=== PATIENT | female | born 2000 | race Caucasian/White ===

== ENCOUNTER 2023-12-17 21:20 | Observation (INO) | payer MEDICARE, SELFPAY ==
[2023-12-17 20:00] VITALS: BMI 31.4
[2023-12-17 20:03] VITALS: BP 143/89
[2023-12-17 20:39] VITALS: BP 115/78
[2023-12-17 21:05] LABS: % Basophils 0.5 % (0-2); % Eosinophils 1.2 % (0-6); % Immature Granulocytes 4.4 % (0-0.5); % Lymphocytes 13.9 % (20.5-51.1); Absolute Basophils 0.1 10^3/uL (0-0.2); Absolute Eosinophils 0.1 10^3/uL (0-0.7); Absolute Immature Granulocytes 0.5 10^3/uL (0-0.05); Absolute Lymphocytes 1.4 10^3/uL (1.2-3.4); Absolute Monocytes 0.7 10^3/uL (0.1-0.6); Absolute Neutrophils 7.4 10^3/uL (1.4-6.5); Hematocrit 33.7 % (37.0-47.0); Hemoglobin 11.6 g/dL (12.0-16.0); Mean Corp Hgb Conc. 34.4 g/dL (33.0-37.0); Mean Corpuscular Hgb 30.2 pg (27.0-31.0); Mean Corpuscular Volume 87.8 fL (81.0-99.0); Mean Platelet Volume 9.1 fL (7.4-10.4); Nucleated Red Blood Cells % 0 %; Platelet Count 207 10^3/uL (130-400); Red Blood Cell Count 3.84 10^6/uL (4.20-5.40); Red Cell Dist. Width 18.6 % (11.5-14.5); White Blood Cell Count 10.1 10^3/uL (4.8-10.8)
--- NOTE | 2023-12-17 21:08 | ED.GENMED ---
History of Present Illness
General
Chief Complaint: Headache
Source: patient
Exam Limitations: none
Time Seen by Provider: 12/17/23 20:21
Travel History
Have you had any contact with someone who has COVID-19?: No
Do you have any symptoms of coronavirus? Fever > 100 degrees, chills, cough, shortness of breath, sore throat, loss of taste or smell, muscle aches, or headache?: No
History of Present Illness
History of Present Illness:
23 y/o F
38 weeks gestation
uncomplicated so far
followed by [facility]
has had 2 weeks of headache, diffuse headache, waxes and wanes but only goes away whne she sleeps
she went to [facility] L&D 2 weeks ago and had labs checked, was given ivf and d/c home but still had the headache
has been taking tylenol 3 times a day and having occasional episodes of nausea/vomiting spontenously
she also has had 1 week of URI sxs, right ear pressure, nasal congestion, dry cough
neg covid test a few days ago
ewn tback to [facility] and had another evlaution
bps normal
labs normla
given reglan/benadryl and fluids and still had the headache
pt is feeling discouraged, that she still has the headache and feels like the staff are blowing her off
she had outpatient appt yesterday, was again feeling unheard
and today has left several messages and at this point is very frustrated and wants another opinon
feeling baby move
no leakage of fluid
no RUQ pain
no edema
bp out front was elevated, this is the highest it has been.
Review of Systems
Review of Systems
Allergies reviewed?: Yes
All Other Systems: Not applicable
Phy Exam
Physical Exam
Physical Exam:
GENERAL: Alert , in no apparent distress
EYE: pupils equal and reactive
NECK: Supple
ENT: R tm with effusion, slightly pink, no perofration
L tm normal, pharynx erythematous but no tonsillar hypertrophy or exudates
CARDIAC: Regular rate and rhythm, no edema
LUNGS: Clear breath sounds bilaterally, no acute respiratory distress, no wheezes/rales/rhonchi, occ cough
ABDOMEN: Soft, GRAVIDwithout focal tenderness, no r/g, no cvat, normal bowel sounds
NEUROLOGICAL: Alert and oriented, no focal neuro deficits, cn intact
SKIN: Warm and dry, skin intact.
acne cheeks
MUSCULOSKELETAL: No edema, well perfused.
PSYCH: Normal and appropriate interaction.
Course
Orders/Labs/Results
Orders:
Orders
12/17/23 20:56
Complete Blood Count/With Diff Urgent
Comprehensive Metabolic Panel Urgent
Protein/Creat Ratio (Random) Urgent
Date Specimen was Collected: 12/17/23
Time Specimen was Collected: 20:55
Urinalysis Reflex To Culture Urgent
Date Specimen was Collected: 12/17/23
Time Specimen was Collected: 20:55
Vital Signs
Initial and Last Documented VS:
Initial Vital Signs
Temp Pulse Resp BP Pulse Ox
98.2 F 90 14 143/89 100
12/17/23 20:03 12/17/23 20:03 12/17/23 20:03 12/17/23 20:03 12/17/23 20:03
Last Documented Vital Signs
Temp Pulse Resp BP Pulse Ox
98.2 F 90 14 115/78 97
12/17/23 20:03 12/17/23 20:03 12/17/23 20:03 12/17/23 20:39 12/17/23 20:45
MDM/Problems Addressed
Differential Diagnosis Includes:
preeclampsia, sinus headache, sinusitis, tension headache, dehydration
MDM/Problems Addressed:
23 y/o F 38 weeks preg
followed at outside hostpial
headache x 2 weeks, no releif with tylenol
w/u x 2 for preeclampsia neg, stil lhas headache
feeling frustrated
initial bp 140/89
then down to 115/73
no edema
nontender gravid abdomen
R ear serous itits/possibly early infection
no AYLA
no necks stiffness
d/w OB attneding, accepts her upstairs
already in process of labs being drawn here, will be followed up there
*Critical Care Note
Total Time (30-74mins, 75-104mins- exclusive of procedures): Not Applicable
ED Attending Note
-
Portions of this chart may have been created with voice recognition software.� Occasional wrong word or��sound alike� substitutions may have occurred due to the inherent limitations of voice recognition software.
Discharge Plan
Departure
Patient Disposition: Home (Routine Discharge)
Date of Disposition: 12/17/23
Time of Disposition: 20:53
Patient with high blood pressure during this ER visit?: Yes
Condition: Fair
Covid-19: Not Applicable
Discharge Problem:
Elevated blood pressure reading, Headache in , Acute ear infection
Instructions: Headache, Adult (DC), Ear Infections in Adults (DC)
Prescriptions:
No Action
Pre-[employer] Multivitamins/Minerals
1 tab PO DAILY
Activity Restrictions/Additional Instructions:
YOU NEED TO GO TO LABOR AND DELIVERY FOR EVALUATION FOR PREECLAMSPIA
YOU CAN TRY BENADRYL AT NIGHT NEEDED FOR YOUR EAR PRESSURE
USE FLONASE NASAL SPRAY
IF YOUR EAR IS STILL BOTHERING YOU, YOU MAY NEED AN ANTIBIOTIC
RETURN FOR ANY CONCERNS.
Interventions
Interventions:
*Risk Screen - Suicide Last Done: 12/17/23 20:09
*General Assessment Last Done: 12/17/23 20:09
*Neglect/Abuse Screening Last Done: 12/17/23 20:09
ED- Fall Risk Assessment Last Done: 12/17/23 20:09
*ED COVID-19 Vaccine History Last Done: 12/17/23 20:09
Discharge Date and Time
Print Language: ALBANIAN
[2023-12-17 21:12] LABS: Urine Albumin Negative (Neg - Trace); Urine Bilirubin Negative (Negative); Urine Character Clear (Clear); Urine Color Yellow; Urine Glucose Negative (Negative); Urine Ketone Negative (Negative); Urine Leukocyte Negative (Negative); Urine Nitrite Negative (Negative); Urine Occult Blood Negative (Negative); Urine Specific Gravity 1.015 (<1.030); Urine Urobilinogen 1+ (Neg - 1+)
[2023-12-17 21:21] LABS: ALT (SGPT) 22 U/L (0-35); AST (SGOT) 47 U/L (14-36); Albumin 3.5 g/dl (3.5-5.0); Alkaline Phosphatase 231 U/L (38-126); Blood Urea Nitrogen 3 mg/dl (7-17); Calcium 9.4 mg/dl (8.4-10.2); Carbon Dioxide 19 mmol/L (22-30); Chloride 107 mmol/L (98-107); Estimated Creatinine Clearance > 125 ml/min; Glucose 75 mg/dl (70-99); Potassium 3.3 mmol/L (3.5-5.1); Sodium 136 mmol/L (135-145); Total Bilirubin 0.6 mg/dl (0.2-1.3); Total Protein 6.7 g/dl (6.3-8.2); eGFR > 60.00
[2023-12-17 21:31] LABS: Protein/creatinine Ratio 0.2; Urine Protein 18 mg/dl
[2023-12-17] MEDS: LR 1000 IV (21:54)
[2023-12-17] MEDS: TYLENOL #3 1 TABLET PO (21:55)
[2023-12-17 22:08] VITALS: BMI 30.8
[2023-12-17 22:09] VITALS: BP 127/77
== END 2023-12-17 23:00 | disposition home or self-care (01) ==
LOC: LDRP 21:20
PROVIDERS: Physician Assistant; ADMITTING PHYSICIAN Obstetrics & Gynecology; EMERGENCY PHYSICIAN Emergency Medicine
DX: O99.891 Other specified diseases and conditions complicating pregnancy (principal); R51.9 Headache, unspecified; Z3A.38 38 weeks gestation of pregnancy
CPT/HCPCS: 80053; 81003; 82570; 84156; 85025; 99283; G0378